=== PATIENT | male | born 1980 | race Caucasian/White ===

== ENCOUNTER 2020-12-12 14:08 | Emergency (ER) | payer OTHER, MEDICAID, SELFPAY ==
[2020-12-12 14:16] VITALS: BP 163/103; PULSE 102; RESP 32; TEMP 37.1; O2SAT 96; BMI 22.0
--- NOTE | 2020-12-12 14:29 | DI.RAD.S_ITS ---
PROCEDURE: XR RIBS RT MIN 3V W CXR 1V INDICATIONS: right sided chest pain, tender over right ribs TECHNIQUE: 2 views of the right ribs were acquired, along with a single view chest. COMPARISON: None. FINDINGS: Surgical changes and devices: None. Bones and chest wall: No fractures or dislocations. No suspicious bony lesions. Overlying soft tissues appear unremarkable. Lungs and pleura: No pleural effusions or pneumothorax. Lungs appear clear. Mediastinum: Mediastinal contours appear normal. Heart size is normal. IMPRESSION: No obvious displaced right rib fracture is seen. No acute cardiopulmonary pathology. Dictated by: Wang Stanton M.D. on 12/12/2020 at 15:51 Approved by: Wang Stanton M.D. on 12/12/2020 at 15:52
== END 2020-12-12 17:19 | disposition left against medical advice (07) ==
PROVIDERS: Emergency Provider Emergency Medicine
DX: R07.9 Chest pain, unspecified (principal)
CPT/HCPCS: 71101; 93005; 99283

== ENCOUNTER 2020-12-14 10:25 | Emergency (ER) | payer OTHER, MEDICAID, SELFPAY ==
[2020-12-14] VITALS (15 sets, daily range): BP systolic 115–162; BP diastolic 55–93; PULSE 65–113; RESP 18–30; TEMP 37.2; O2SAT 94–100; BMI 22.0
--- NOTE | 2020-12-14 10:34 | DI.RAD.S_ITS ---
PROCEDURE: XR CHEST 1V INDICATIONS: suspected sepsis TECHNIQUE: One view of the chest was acquired. COMPARISON: [facility], CR, XR RIBS RT MIN 3V W CXR 1V, 12/12/2020, 14:29. FINDINGS: Surgical changes and devices: None. Lungs and pleura: Bilateral patchy airspace opacity. No pleural effusions or pneumothorax. Mediastinum: Mediastinal contours are within normal limits. Heart size is normal. Bones and chest wall: No suspicious bony lesions. Overlying soft tissues appear unremarkable. IMPRESSION: Bilateral patchy airspace opacity. Findings suspicious for infectious/inflammatory etiology. COVID-19 could have this appearance. Dictated by: Asher Alvarado M.D. on 12/14/2020 at 11:01 Approved by: Asher Alvarado M.D. on 12/14/2020 at 11:03
[2020-12-14] MEDS: SODIUM CHLORIDE 0.9% 1,000 ML 1000 ML IV (10:52)
[2020-12-14 11:22] LABS: Add Manual Diff / Slide Review NO; Basophils Absolute Auto 0 /uL (0-100); Basophils Percent Auto 0.1 % (0-2); Eosinophils Absolute Auto 0 /uL (0-450); Eosinophils Percent Auto 0.2 % (2-4); Hematocrit 37.4 % (41-53); Hemoglobin 12.5 g/dL (13.5-17.5); Lymphocytes Absolute Auto 400 /uL (1100-4500); Lymphocytes Percent Auto 1.9 % (25-40); Mean Corpuscular HGB Conc 33.4 % (30-36); Mean Corpuscular Volume 83.9 fL (80-100); Monocytes Absolute Auto 1500 /uL (0-900); Monocytes Percent Auto 6.9 % (3-14); Neutrophils Absolute Auto 19500 /uL (1500-7000); Neutrophils Percent Auto 90.9 % (50-75); Platelet Count 248 X10^3/uL (150-400); Red Blood Cell Count 4.46 X10^6/uL (4.5-5.9); Red Cell Distribution Width 13.5 % (11.6-14.8); White Blood Cell Count 21.4 X10^3/uL (4.5-11.0)
[2020-12-14 11:23] LABS: Alanine Aminotransferase 38 IU/L (<50); Albumin 3.6 g/dL (3.5-5.0); Alkaline Phosphatase 121 U/L (38-126); Aspartate Aminotransferase 36 IU/L (17-59); BUN Creatinine Ratio 26.3 (6-22); Bilirubin Total 0.5 mg/dL (0.2-1.3); Blood Urea Nitrogen 20 mg/dL (9-20); Calcium 9.2 mg/dL (8.4-10.2); Carbon Dioxide 23 mmol/L (22-32); Chloride 98 mmol/L (98-107); Estimated Glomerular Filt Rate > 60.0 mL/min (>60); Globulin 3.5 g/dL (1.7-4.1); Glucose 173 mg/dL (70-100); HEMOLYSIS < 15 (0-50); Lactate (Lactic Acid) 2.9 mmol/L (0.7-2.1); Lipase 34 U/L (23-300); Potassium 4.1 mmol/L (3.4-5.1); Sodium 132 mmol/L (137-145); Total Protein 7.1 g/dL (6.3-8.2)
[2020-12-14 11:39] LABS: Procalcitonin 1.45 ng/mL (<0.5)
[2020-12-14] MEDS: PIPERACILLIN/TAZO 4.5 GM in SODIUM CHLORIDE 0.9% 100 ML 200 ML IV (11:41)
[2020-12-14] MEDS: KETOROLAC 30 MG/ML VIAL IV (11:41)
[2020-12-14 12:04] LABS: D Dimer 2285 ng/mL (<230)
[2020-12-14 12:06] LABS: COVID19 - ADMIT (NP swab/PCR) Negative (Negative)
--- NOTE | 2020-12-14 12:07 | ED.SKABFB ---
HPI - Skin/Abscess/Foreign Bdy General Chief complaint: Skin/Abscess/Foreign Body Stated complaint: shortness of breath/sore on head x5 days Time Seen by Provider: 12/14/20 11:19 Source: patient Mode of arrival: Ambulatory Limitations: no limitations History of Present Illness HPI narrative: Patient is a 40-year-old male who presents from clinic concern for cellulitis of his scalp. He noticed a wound on the right side of his scalp increasing pain he also says that he is having difficulty breathing says it hurts to breathe. He certainly looks uncomfortable. He has had some fevers and sweats as well. 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 he says he has not injected for couple of months and typically smokes it. Related Data Previous Rx's Medication Instructions Recorded naproxen 500 mg tablet 500 mg PO BID #20 tab 12/13/20 tizanidine 4 mg tablet 4 mg PO TID PRN #30 tab 12/13/20 Allergies Allergy/AdvReac Type Severity Reaction Status Date / Time No Known Drug Allergies Allergy Verified 12/14/20 10:31 Review of Systems Review of Systems ROS Unobtainable: All systems reviewed & are unremarkable except as noted in HPI and below Constitutional Constitutional: Reports weakness ENT Ears, Nose, Mouth, and Throat: Denies dizziness and Denies sore throat Cardiovascular Cardiovascular: Reports chest pain, Denies syncope and Reports dyspnea Respiratory Respiratory: Reports dyspnea Genitourinary Genitourinary: Denies urinary frequency and Denies urinary hesitancy Musculoskeletal Musculoskeletal: Denies back pain Neurologic Neurologic: Denies dizziness, Denies syncope and Reports weakness Patient History Social History Smoking Status: Current every day smoker Smoking Status: Current every day smoker alcohol intake frequency: holidays/special occasions only Substance Use Type: marijuana Exam Initial Vital Signs Initial Vital Signs: Vital Signs Temperature 98.9 F 12/14/20 10:31 Pulse Rate 113 H 12/14/20 10:31 Respiratory Rate 30 H 12/14/20 10:31 Blood Pressure 119/55 L 12/14/20 10:31 Pulse Oximetry 98 12/14/20 10:31 GENERAL: Alert thin young 40-year-old male appears uncomfortable and in mild to moderate distress HEENT: Head atraumatic,EOMI, pupils reactive, face symmetric, moist mucous membranes CARDIOVASCULAR: Tachycardic regular no rubs or gallops no murmur RESPIRATORY: Tachypneic clear bilaterally ABDOMEN: Soft, nontender. Normoactive bowel sounds all 4 quadrants. No guarding or rebound. EXTREMITIES: Normal range of motion, no clubbing or edema. Neurovascularly intact NEUROLOGICAL: Alert and oriented x4.Normal gait and speech. SKIN: Wound noted on right side of head 2 cm x 2 cm a difficult to tell if there is surrounding erythema certainly no fluctuation or abscess. Course Orders Ordered: ED Orders 12/14/20 11:33 Blood Culture Stat D Dimer Stat 12/14/20 12:38 CT angio chest PE protocol Stat 12/14/20 12:44 Urinalysis and Microscopic Stat Urine Culture Stat Urine Drug Screen, Rapid Stat 12/14/20 13:09 EC echo doppler complete Stat Discontinued Medications Hydromorphone HCl (Hydromorphone 0.5 Mg Inj) 0.5 mg IV NOW ONE Stop: 12/14/20 13:11 Last Admin: 12/14/20 13:15 Dose: 0.5 mg Documented by: CRISTEL Hydromorphone HCl (Hydromorphone 1 Mg Inj) 1 mg IV NOW ONE Stop: 12/14/20 16:48 Last Admin: 12/14/20 17:01 Dose: 1 mg Documented by: CRISTEL Hydromorphone HCl (Hydromorphone 1 Mg Inj) 1 mg IV NOW ONE Stop: 12/14/20 18:14 Last Admin: 12/14/20 18:20 Dose: 1 mg Documented by: TAMIE Sodium Chloride (Normal Saline 0.9%) 1,000 mls @ 1,000 mls/hr IV BOLUS ONE Stop: 12/14/20 11:33 Last Infusion: 12/14/20 12:07 Dose: 0 mls/hr Documented by: Admin: 12/14/20 10:52 Dose: 1,000 mls/hr Documented by: BRANNON Piperacillin Sod/Tazobactam (Sod 4.5 gm/ Sodium Chloride) 100 mls @ 200 mls/hr IV NOW ONE Stop: 12/14/20 11:30 Last Infusion: 12/14/20 12:14 Dose: 0 mls/hr Documented by: Admin: 12/14/20 11:41 Dose: 200 mls/hr Documented by: CRISTEL Vancomycin HCl (Vancomycin) 1,000 mg in 200 mls @ 200 mls/hr IV NOW ONE Stop: 12/14/20 14:07 Last Infusion: 12/14/20 14:28 Dose: 0 mls/hr Documented by: Admin: 12/14/20 13:23 Dose: 200 mls/hr Documented by: CRISTEL Sodium Chloride (Normal Saline 0.9%) 1,000 mls @ 150 mls/hr IV CONT DEANNA Last Admin: 12/14/20 13:41 Dose: 150 mls/hr Documented by: CRISTEL Ketorolac Tromethamine (Ketorolac 30 Mg/Ml Vial) 30 mg IV NOW ONE Stop: 12/14/20 11:30 Last Admin: 12/14/20 11:41 Dose: 30 mg Documented by: CRISTEL Lorazepam (Lorazepam 2 Mg/Ml Inj) 1 mg IV NOW ONE Stop: 12/14/20 15:48 Last Admin: 12/14/20 15:51 Dose: 1 mg Documented by: CRISTEL Lorazepam (Lorazepam 2 Mg/Ml Inj) 1 mg IV NOW ONE Stop: 12/14/20 18:14 Last Admin: 12/14/20 18:19 Dose: 1 mg Documented by: TAMIE Vital Signs Vital signs: Vital Signs - 8 hr 12/14/20 12:59 12/14/20 13:05 12/14/20 14:05 Pulse Rate 65 98 H 95 H Respiratory Rate 18 18 Blood Pressure 116/65 116/65 115/65 Pulse Oximetry 94 99 98 12/14/20 15:06 12/14/20 15:12 12/14/20 15:43 Pulse Rate 97 H 110 H 100 H Respiratory Rate 18 18 20 Blood Pressure 138/82 134/75 Pulse Oximetry 98 98 100 12/14/20 15:44 12/14/20 16:00 12/14/20 16:30 Pulse Rate 99 H 103 H 107 H Respiratory Rate 20 20 Blood Pressure 134/75 147/84 H 156/84 H Pulse Oximetry 98 100 100 12/14/20 17:00 12/14/20 17:30 12/14/20 18:00 Pulse Rate 110 H 102 H 113 H Respiratory Rate Blood Pressure 162/93 H 157/93 H 150/92 H Pulse Oximetry 99 98 98 MDM - Skin/Abscess/Foreign Bdy Lab Data Attestation: I reviewed the patient's lab results. Result diagrams: 12/14/20 10:50 12/14/20 10:50 Labs: Lab Results 12/14/20 12/14/20 12/14/20 Range/Units 10:50 10:50 10:50 WBC 21.4 H (4.5-11.0) X10^3/uL RBC 4.46 L (4.5-5.9) X10^6/uL Hgb 12.5 L (13.5-17.5) g/dL Hct 37.4 L (41-53) % MCV 83.9 (80-100) fL MCH 28.0 (26-34) PG MCHC 33.4 (30-36) % RDW 13.5 (11.6-14.8) % Plt Count 248 (150-400) X10^3/uL Neut % (Auto) 90.9 H (50-75) % Lymph % (Auto) 1.9 L (25-40) % Campbell % (Auto) 6.9 (3-14) % Eos % (Auto) 0.2 L (2-4) % Baso % (Auto) 0.1 (0-2) % Neut # (Auto) 35703 H (9913-1581) /uL Lymph # (Auto) 400 L (1435-2033) /uL Campbell # (Auto) 1500 H (0-900) /uL Eos # (Auto) 0 (0-450) /uL Baso # (Auto) 0 (0-100) /uL D-Dimer (<230) ng/mL Sodium 132 L (137-145) mmol/L Potassium 4.1 (3.4-5.1) mmol/L Chloride 98 (98-107) mmol/L Carbon Dioxide 23 (22-32) mmol/L BUN 20 (9-20) mg/dL Creatinine 0.76 (0.66-1.25) mg/dL Estimated GFR > 60.0 (>60) mL/min BUN/Creatinine Ratio 26.3 H (6-22) Glucose 173 H (70-100) mg/dL Lactate 2.9 H (0.7-2.1) mmol/L Calcium 9.2 (8.4-10.2) mg/dL Total Bilirubin 0.5 (0.2-1.3) mg/dL AST 36 (17-59) IU/L ALT 38 (<50) IU/L Alkaline Phosphatase 121 (38-126) U/L Total Protein 7.1 (6.3-8.2) g/dL Albumin 3.6 (3.5-5.0) g/dL Globulin 3.5 (1.7-4.1) g/dL Albumin/Globulin Ratio 1.0 (1.0-2.8) Lipase 34 (23-300) U/L Procalcitonin 1.45 H (<0.5) ng/mL Urine Color Urine Appearance Urine pH (4.5-8.0) Ur Specific [place] (1.000-1.035) Urine Protein (Negative) Urine Glucose (UA) (Negative) g/dL Urine Ketones (NEGATIVE) Urine Occult Blood (Negative) Urine Nitrate (Negative) Urine Bilirubin (NEGATIVE) Urine Urobilinogen (0.2) E.U./dL Ur Leukocyte Esterase (NEGATIVE) Urine RBC (0-5/HPF) Urine WBC (0-5/HPF) Ur Squamous Epith Cells (0-5/HPF) Amorphous Sediment Urine Bacteria (None) Urine Mucus (Negative) Ur Culture Indicated? U Opiates 300ng/mL cut (Negative) Ur Oxycodone Screen (Negative) Urine Methadone Screen (Negative) Ur Barbiturates Screen (Negative) U Tricyclic Antidepress (Negative) Ur Phencyclidine Scrn (Negative) Ur Amphetamines Screen (Negative) U Methamphetamines Scrn (Negative) Ur MDMA Scrn (Ecstasy) (Negative) U Benzodiazepines Scrn (Negative) Urine Cocaine Screen (Negative) U Marijuana (THC) Screen (Negative) SARS-CoV-2 (PCR) (Negative) 12/14/20 12/14/20 12/14/20 Range/Units 10:50 11:33 12:44 WBC (4.5-11.0) X10^3/uL RBC (4.5-5.9) X10^6/uL Hgb (13.5-17.5) g/dL Hct (41-53) % MCV (80-100) fL MCH (26-34) PG MCHC (30-36) % RDW (11.6-14.8) % Plt Count (150-400) X10^3/uL Neut % (Auto) (50-75) % Lymph % (Auto) (25-40) % Campbell % (Auto) (3-14) % Eos % (Auto) (2-4) % Baso % (Auto) (0-2) % Neut # (Auto) (8138-4738) /uL Lymph # (Auto) (7889-5542) /uL Campbell # (Auto) (0-900) /uL Eos # (Auto) (0-450) /uL Baso # (Auto) (0-100) /uL D-Dimer 2285 H (<230) ng/mL Sodium (137-145) mmol/L Potassium (3.4-5.1) mmol/L Chloride (98-107) mmol/L Carbon Dioxide (22-32) mmol/L BUN (9-20) mg/dL Creatinine (0.66-1.25) mg/dL Estimated GFR (>60) mL/min BUN/Creatinine Ratio (6-22) Glucose (70-100) mg/dL Lactate (0.7-2.1) mmol/L Calcium (8.4-10.2) mg/dL Total Bilirubin (0.2-1.3) mg/dL AST (17-59) IU/L ALT (<50) IU/L Alkaline Phosphatase (38-126) U/L Total Protein (6.3-8.2) g/dL Albumin (3.5-5.0) g/dL Globulin (1.7-4.1) g/dL Albumin/Globulin Ratio (1.0-2.8) Lipase (23-300) U/L Procalcitonin (<0.5) ng/mL Urine Color Yellow Urine Appearance Slightly cloudy Urine pH 6.0 (4.5-8.0) Ur Specific [place] <=1.005 (1.000-1.035) Urine Protein 1+ H (Negative) Urine Glucose (UA) Trace H (Negative) g/dL Urine Ketones Negative (NEGATIVE) Urine Occult Blood 1+ H (Negative) Urine Nitrate Negative (Negative) Urine Bilirubin Negative (NEGATIVE) Urine Urobilinogen 0.2 (0.2) E.U./dL Ur Leukocyte Esterase Negative (NEGATIVE) Urine RBC 0-1/hpf (0-5/HPF) Urine WBC 5-10/hpf H (0-5/HPF) Ur Squamous Epith Cells 0-1 /hpf (0-5/HPF) Amorphous Sediment 1+ Urine Bacteria Occasional (0-1) (None) Urine Mucus 1+ H (Negative) Ur Culture Indicated? Specimen cultured U Opiates 300ng/mL cut (Negative) Ur Oxycodone Screen (Negative) Urine Methadone Screen (Negative) Ur Barbiturates Screen (Negative) U Tricyclic Antidepress (Negative) Ur Phencyclidine Scrn (Negative) Ur Amphetamines Screen (Negative) U Methamphetamines Scrn (Negative) Ur MDMA Scrn (Ecstasy) (Negative) U Benzodiazepines Scrn (Negative) Urine Cocaine Screen (Negative) U Marijuana (THC) Screen (Negative) SARS-CoV-2 (PCR) Negative (Negative) 12/14/20 12/14/20 Range/Units 12:44 13:29 WBC (4.5-11.0) X10^3/uL RBC (4.5-5.9) X10^6/uL Hgb (13.5-17.5) g/dL Hct (41-53) % MCV (80-100) fL MCH (26-34) PG MCHC (30-36) % RDW (11.6-14.8) % Plt Count (150-400) X10^3/uL Neut % (Auto) (50-75) % Lymph % (Auto) (25-40) % Campbell % (Auto) (3-14) % Eos % (Auto) (2-4) % Baso % (Auto) (0-2) % Neut # (Auto) (7500-7644) /uL Lymph # (Auto) (6410-3228) /uL Campbell # (Auto) (0-900) /uL Eos # (Auto) (0-450) /uL Baso # (Auto) (0-100) /uL D-Dimer (<230) ng/mL Sodium (137-145) mmol/L Potassium (3.4-5.1) mmol/L Chloride (98-107) mmol/L Carbon Dioxide (22-32) mmol/L BUN (9-20) mg/dL Creatinine (0.66-1.25) mg/dL Estimated GFR (>60) mL/min BUN/Creatinine Ratio (6-22) Glucose (70-100) mg/dL Lactate 1.8 (0.7-2.1) mmol/L Calcium (8.4-10.2) mg/dL Total Bilirubin (0.2-1.3) mg/dL AST (17-59) IU/L ALT (<50) IU/L Alkaline Phosphatase (38-126) U/L Total Protein (6.3-8.2) g/dL Albumin (3.5-5.0) g/dL Globulin (1.7-4.1) g/dL Albumin/Globulin Ratio (1.0-2.8) Lipase (23-300) U/L Procalcitonin (<0.5) ng/mL Urine Color Urine Appearance Urine pH (4.5-8.0) Ur Specific [place] (1.000-1.035) Urine Protein (Negative) Urine Glucose (UA) (Negative) g/dL Urine Ketones (NEGATIVE) Urine Occult Blood (Negative) Urine Nitrate (Negative) Urine Bilirubin (NEGATIVE) Urine Urobilinogen (0.2) E.U./dL Ur Leukocyte Esterase (NEGATIVE) Urine RBC (0-5/HPF) Urine WBC (0-5/HPF) Ur Squamous Epith Cells (0-5/HPF) Amorphous Sediment Urine Bacteria (None) Urine Mucus (Negative) Ur Culture Indicated? U Opiates 300ng/mL cut Positive H (Negative) Ur Oxycodone Screen Negative (Negative) Urine Methadone Screen Negative (Negative) Ur Barbiturates Screen Negative (Negative) U Tricyclic Antidepress Negative (Negative) Ur Phencyclidine Scrn Negative (Negative) Ur Amphetamines Screen Positive H (Negative) U Methamphetamines Scrn Positive H (Negative) Ur MDMA Scrn (Ecstasy) Negative (Negative) U Benzodiazepines Scrn Negative (Negative) Urine Cocaine Screen Negative (Negative) U Marijuana (THC) Screen Positive H (Negative) SARS-CoV-2 (PCR) (Negative) Urine Dip Bedside Urine Glucose Negative Bedside Urine Bilirubin - Negative Bedside Urine Ketone - Negative Urine Specific [place] 1.020 Bedside Urine Occult Blood +/- Bedside Urine pH 6.0 Bedside Urine Protein + 30 Bedside Urine Urobilinogen - Negative Bedside Urine Nitrite - Negative Bedside Urine Leukocytes - Negative Esterase Imaging Data CT scan - chest: Radiologist's Impression: PROCEDURE: CT ANGIO CHEST PE PROTOCOL INDICATIONS: ++dimer and sob TECHNIQUE: After the administration of intravenous contrast, 2 mm thick sections acquired from the pulmonary apices to the posterior costophrenic angles. 3-dimensional maximum intensity projection (MIP) coronal and sagittal reformats were then acquired through the thorax. For radiation dose reduction, the following was used: automated exposure control, adjustment of mA and/or kV according to patient size. COMPARISON: None. FINDINGS: Image quality: Excellent. Pulmonary arteries: Pulmonary arteries are normal in size, and demonstrate no intraluminal filling defects to suggest central pulmonary embolism. Lungs and pleura: Numerous bilateral ill-defined relatively peripheral cavitary pulmonary nodules, as well as ill-defined non cavitary pulmonary nodules are highly suspicious for septic pulmonary emboli. Small right pleural effusion with minimal right basilar atelectasis. Central and peripheral airways are patent. Mediastinum: Heart size is normal, with minimal pericardial effusion. Shotty mediastinal or hilar adenopathy. Thoracic aorta is normal in caliber and enhancement. Esophagus is normal in caliber, without hiatal hernia. Bones and chest wall: No suspicious bony lesions. Ribs and thoracic spine appear intact throughout. Thyroid gland is somewhat lobulated without focal nodule identified. No axillary or supraclavicular adenopathy. Abdomen: Visualized upper abdominal solid organs appear normal in the early arterial phase of enhancement. IMPRESSION: 1. Findings are highly suspicious for numerous bilateral septic pulmonary emboli. Comment: Recommend echocardiography to check for vegetations. Dictated by: Arturo Marsh M.D. on 12/14/2020 at 12:35 ECHO: Radiologist's Impression: [facility] +---------+ Hospital +---------+ : : [address] : : [place] : : : : [id number] : : : : Phone: [phone] Echocardiogram Report + + :Name: KEVIN DAVISON Study Date: 12/14/2020 Height: 68 in : :Hospital ReadingLocation: Weight: 145 lb : : Gender: Male BSA: 1.8 m2 : :: 1980 Age: 40 yrs BP: 147/84 mmHg: :Reason For Study: SEPTIC EMBOLI, POSSIBLE VEGETATIONS : :Ordering Physician: JEREMY, : :IDA Performed By: Lola Cerda : :Referring: IDA LUNA : + + Interpretation Summary The patient was in sinus tachycardia with heart rates between 100-110 bpm during the exam. The left ventricle is normal in size and wall thickness. The ejection fraction is estimated to be 50-55%. The right ventricle is normal in size and function. There is mild to moderate mitral regurgitation. There is mild tricuspid regurgitation. Pulmonary artery pressures cannot be estimated because of the lack of a measurable TR jet velocity but the IVC suggests a CVP of around 15 mmHg. No obvious valvular vegetation seen. Procedure: A two-dimensional transthoracic echocardiogram with color flow and Doppler was performed. The study quality was technically adequate. There is no prior echocardiogram noted for this patient. Patient was scanned in a supine and seated position due to intense pains in back. The patient was in sinus tachycardia with heart rates between 100-110 bpm during the exam. Left Ventricle: The left ventricle is normal in size and wall thickness. There is no thrombus. Trabeculae near apex are visualized. No thrombus is observed. The ejection fraction is estimated to be 50-55%. Septal motion is consistent with conduction abnormality. MV E/A: 1.1 Med Peak E' Graham: 12.5 cm/sec E/E' med: 6.3. Right Ventricle: The right ventricle is normal in size and function. Atria: Both atria are normal in size. There is no Doppler evidence for an interatrial shunt. Mitral Valve: The mitral valve is normal in structure and function. There is mild to moderate mitral regurgitation. Aortic Valve: The aortic valve opens well. The aortic valve is trileaflet. There is no aortic valve stenosis. No aortic regurgitation is present. Tricuspid Valve: The tricuspid valve is normal in structure and function. There is mild tricuspid regurgitation. Pulmonary artery pressures cannot be estimated because of the lack of a measurable TR jet velocity but the IVC suggests a CVP of around 15 mmHg. Pulmonic Valve: The pulmonic valve leaflets are thin and pliable; valve motion is normal. There is no pulmonic valvular regurgitation. Great Vessels: The aortic root is normal size. The ascending aorta could not be visualized. The IVC is dilated (diameter is greater than 2.1 cm) and it collapses less than 50% with a sniff. This suggests a high right atrial pressure of 15 mm Hg. Pericardium/ Pleura There is no pericardial effusion. There is no pleural effusion. MMode/2D Measurements & Calculations LVIDd: 4.4 cm LVOT diam: 2.3 cm LVIDs: 3.2 cm Ao root diam: 3.2 cm FS: 26.1 % Ao Arch Diam (Prox Trans): 2.6 cm IVSd: 0.95 cm LVPWd: 0.88 cm LV villasenor. diameter/BSA (cm/m^2): 2.5 LV sys. diameter/BSA (cm/m^2): 1.8 LA A2 area: 14.5 cm2 RA long axis: 4.4 cm LA A4 area: 15.0 cm2 RA area: 14.5 cm2 LA length (vol): 4.8 cm RA vol: 40.7 ml LA vol: 38.3 ml RA : 22.8 ml/m2 LA vol index: 21.5 ml/m2 IVC diam: 2.4 cm RVD1 (basal): 4.0 cm TAPSE: 2.1 cm Doppler Measurements & Calculations Ao V2 max: 111.4 cm/sec LVOT Max Graham: 106.8 cm/sec Ao V2 mean: 79.2 cm/sec LV V1 max P.6 mmHg Ao max P.0 mmHg LV V1 VTI: 16.3 cm Ao mean P.8 mmHg KELVIN(I,D): 4.0 cm2 Ao V2 VTI: 16.7 cm KELVIN(V,D): 3.9 cm2 sev ratio: 0.97 KELVIN indexed to BSA (cm^2/m^2): 2.2 MV E max graham: 78.5 cm/sec PA V2 max: 104.9 cm/sec MV A max graham: 70.4 cm/sec PA V2 mean: 73.1 cm/sec MV E/A: 1.1 PA mean P.4 mmHg Med Peak E' Graham: 12.5 cm/sec PA pr(Accel): 36.2 mmHg E/E' med: 6.3 Lat Peak E' Graham: 13.5 cm/sec E/E' lat: 5.8 E/e' average: 6.1 MV dec time: 0.17 sec SV(LVOT): 66.5 ml Reading Physician:04:57 PM ECG Data Interpretation: Sinus tachycardia rate 109 AL interval 130 QRS [address] changes or T-wave and inversions Q-waves noted in lead 3 S wave in lead 1 possible T-wave inversions in lead 3 no ischemic changes noted MDM Narrative Medical decision making narrative: Patient appears uncomfortable tachypneic tachycardic is. Wound on his head is not significant certainly no obvious abscess not convinced that there cellulitis around it either. Leukocytosis returns at 21,000 with elevated lactate at 2.9. Patient certainly septic IV fluids started he is not hypoxic he is given empiric antibiotics after blood cultures have been drawn. D-dimer was ordered because of patient's tachycardia and tachypnea he returned elevated greater than 2000. CT of his chest does show multiple bilateral septic emboli. He is started on vancomycin. Significant bed shortage in the [facility] thought to be boarding in the emergency department for number hours we days echocardiogram is ordered stat to help determine placement. Fortunately echocardiogram does not show any vegetation on his valves. Patient's pain continues to be difficult to control. He has been given multiple doses of Dilaudid an Ativan some of this I think is from tolerance. [id number] Dr. Franks, hospitalist at [facility] been updated patient's symptoms test results and is happy to accept. Critical Care Time Critical Care Time Critical Care Time: Yes Total Critical Care Time: 30 Attestation: The high probability of a clinically significant, sudden or life threatening deterioration of the cardiovascular system(s) required my full and direct attention, intervention and personal management. The aggregate critical care time was 30 minutes. This time is in addition to time spent performing reported procedures but includes the following: x Data Review and interpretation x Patient assessment and monitoring of vital signs x Documentation x Medication orders and management Discharge Plan Departure Patient Disposition: [facility] Clinical Impression: Acute septic pulmonary embolism Qualifiers: Acute cor pulmonale presence: without acute cor pulmonale Qualified Code(s): I26.90 - Septic pulmonary embolism without acute cor pulmonale Prescriptions: No Action tizanidine 4 mg tablet 4 mg PO TID PRN (Reason: muscle spasticity) Qty: 30 RF: 0 naproxen 500 mg tablet 500 mg PO BID Qty: 20 RF: 3 Referrals: Tamika Valenzuela PA-C [Primary Care Provider] -
--- NOTE | 2020-12-14 12:38 | DI.CT.S_ITS ---
PROCEDURE: CT ANGIO CHEST PE PROTOCOL INDICATIONS: ++dimer and sob TECHNIQUE: After the administration of intravenous contrast, 2 mm thick sections acquired from the pulmonary apices to the posterior costophrenic angles. 3-dimensional maximum intensity projection (MIP) coronal and sagittal reformats were then acquired through the thorax. For radiation dose reduction, the following was used: automated exposure control, adjustment of mA and/or kV according to patient size. COMPARISON: None. FINDINGS: Image quality: Excellent. Pulmonary arteries: Pulmonary arteries are normal in size, and demonstrate no intraluminal filling defects to suggest central pulmonary embolism. Lungs and pleura: Numerous bilateral ill-defined relatively peripheral cavitary pulmonary nodules, as well as ill-defined non cavitary pulmonary nodules are highly suspicious for septic pulmonary emboli. Small right pleural effusion with minimal right basilar atelectasis. Central and peripheral airways are patent. Mediastinum: Heart size is normal, with minimal pericardial effusion. Shotty mediastinal or hilar adenopathy. Thoracic aorta is normal in caliber and enhancement. Esophagus is normal in caliber, without hiatal hernia. Bones and chest wall: No suspicious bony lesions. Ribs and thoracic spine appear intact throughout. Thyroid gland is somewhat lobulated without focal nodule identified. No axillary or supraclavicular adenopathy. Abdomen: Visualized upper abdominal solid organs appear normal in the early arterial phase of enhancement. IMPRESSION: 1. Findings are highly suspicious for numerous bilateral septic pulmonary emboli. Comment: Recommend echocardiography to check for vegetations. Dictated by: Arturo Marsh M.D. on 12/14/2020 at 12:35 Approved by: Arturo Marsh M.D. on 12/14/2020 at 12:41
[2020-12-14 13:00] LABS: Reflexed Lactate in 2 Hours Y
[2020-12-14 13:06] LABS: Bilirubin Urine UA NEGATIVE (NEGATIVE); Color Urine UA YELLOW; Glucose Urine UA TRACE g/dL (Negative); Ketones Urine UA NEGATIVE (NEGATIVE); Leukocyte Esterase Urine UA NEGATIVE (NEGATIVE); Nitrite Urine UA NEGATIVE (Negative); Occult Blood Urine UA 1+ (Negative); Protein Urine UA 1+ (Negative); Specific Gravity Urine UA <=1.005 (1.000-1.035); Urobilinogen Urine UA 0.2 E.U./dL (0.2)
--- NOTE | 2020-12-14 13:09 | DI.ECHO.S_ITS ---
[facility]---------+ [facility] +---------+ : : [address] : [place] : : : : [id number] : : : : Phone: [phone]+ Echocardiogram Report + + :Name: KEVIN DAVISON Study Date: 12/14/2020 Height: 68 in : :[facility] ReadingLocation: Weight: 145 lb : : Gender: Male BSA: 1.8 m2 : :: 1980 Age: 40 yrs BP: 147/84 mmHg: :Reason For Study: SEPTIC EMBOLI, POSSIBLE VEGETATIONS : :Ordering Physician: JEREMY, : :IDA Performed By: Lola Cerda : :Referring: IDA LUNA : + + Interpretation Summary The patient was in sinus tachycardia with heart rates between 100-110 bpm during the exam. The left ventricle is normal in size and wall thickness. The ejection fraction is estimated to be 50-55%. The right ventricle is normal in size and function. There is mild to moderate mitral regurgitation. There is mild tricuspid regurgitation. Pulmonary artery pressures cannot be estimated because of the lack of a measurable TR jet velocity but the IVC suggests a CVP of around 15 mmHg. No obvious valvular vegetation seen. Procedure: A two-dimensional transthoracic echocardiogram with color flow and Doppler was performed. The study quality was technically adequate. There is no prior echocardiogram noted for this patient. Patient was scanned in a supine and seated position due to intense pains in back. The patient was in sinus tachycardia with heart rates between 100-110 bpm during the exam. Left Ventricle: The left ventricle is normal in size and wall thickness. There is no thrombus. Trabeculae near apex are visualized. No thrombus is observed. The ejection fraction is estimated to be 50-55%. Septal motion is consistent with conduction abnormality. MV E/A: 1.1 Med Peak E' Graham: 12.5 cm/sec E/E' med: 6.3. Right Ventricle: The right ventricle is normal in size and function. Atria: Both atria are normal in size. There is no Doppler evidence for an interatrial shunt. Mitral Valve: The mitral valve is normal in structure and function. There is mild to moderate mitral regurgitation. Aortic Valve: The aortic valve opens well. The aortic valve is trileaflet. There is no aortic valve stenosis. No aortic regurgitation is present. Tricuspid Valve: The tricuspid valve is normal in structure and function. There is mild tricuspid regurgitation. Pulmonary artery pressures cannot be estimated because of the lack of a measurable TR jet velocity but the IVC suggests a CVP of around 15 mmHg. Pulmonic Valve: The pulmonic valve leaflets are thin and pliable; valve motion is normal. There is no pulmonic valvular regurgitation. Great Vessels: The aortic root is normal size. The ascending aorta could not be visualized. The IVC is dilated (diameter is greater than 2.1 cm) and it collapses less than 50% with a sniff. This suggests a high right atrial pressure of 15 mm Hg. Pericardium/ Pleura There is no pericardial effusion. There is no pleural effusion. MMode/2D Measurements & Calculations LVIDd: 4.4 cm LVOT diam: 2.3 cm LVIDs: 3.2 cm Ao root diam: 3.2 cm FS: 26.1 % Ao Arch Diam (Prox Trans): 2.6 cm IVSd: 0.95 cm LVPWd: 0.88 cm LV villasenor. diameter/BSA (cm/m^2): 2.5 LV sys. diameter/BSA (cm/m^2): 1.8 LA A2 area: 14.5 cm2 RA long axis: 4.4 cm LA A4 area: 15.0 cm2 RA area: 14.5 cm2 LA length (vol): 4.8 cm RA vol: 40.7 ml LA vol: 38.3 ml RA : 22.8 ml/m2 LA vol index: 21.5 ml/m2 IVC diam: 2.4 cm RVD1 (basal): 4.0 cm TAPSE: 2.1 cm Doppler Measurements & Calculations Ao V2 max: 111.4 cm/sec LVOT Max Graham: 106.8 cm/sec Ao V2 mean: 79.2 cm/sec LV V1 max P.6 mmHg Ao max P.0 mmHg LV V1 VTI: 16.3 cm Ao mean P.8 mmHg KELVIN(I,D): 4.0 cm2 Ao V2 VTI: 16.7 cm KELVIN(V,D): 3.9 cm2 sev ratio: 0.97 KELVIN indexed to BSA (cm^2/m^2): 2.2 MV E max graham: 78.5 cm/sec PA V2 max: 104.9 cm/sec MV A max graham: 70.4 cm/sec PA V2 mean: 73.1 cm/sec MV E/A: 1.1 PA mean P.4 mmHg Med Peak E' Graham: 12.5 cm/sec PA pr(Accel): 36.2 mmHg E/E' med: 6.3 Lat Peak E' Graham: 13.5 cm/sec E/E' lat: 5.8 E/e' average: 6.1 MV dec time: 0.17 sec SV(LVOT): 66.5 ml Reading Physician:04:[id number] PM
[2020-12-14] MEDS: HYDROMORPHONE 0.5 MG INJ IV (13:15)
[2020-12-14] MEDS: VANCOMYCIN 1,000 MG/200 ML PIGGYBACK 200 MG IV (13:23)
[2020-12-14 13:24] LABS: Appearance Urine UA Slightly Cloudy; RBC Urine 0-1/HPF (0-5/HPF); WBC Urine 5-10/HPF (0-5/HPF)
[2020-12-14 13:25] LABS: Amorphous Sediment Urine 1+; Bacteria Urine Occasional (0-1); Culture Indicated Urine Specimen Cultured; Mucus Urine 1+ (Negative); Squamous Epithelial Cell Urine 0-1 /HPF (0-5/HPF)
[2020-12-14 13:41] LABS: Ur Creatinine Normal (Normal); Ur Specific Gravity Normal (Normal); Urine Tetrahydrocannabinol Positive (Negative); Urine pH Normal (Normal)
[2020-12-14] MEDS: SODIUM CHLORIDE 0.9% 1,000 ML 150 ML IV (13:41)
[2020-12-14 13:42] LABS: UR Morphine/Opiate cutoff 300 Positive (Negative); Urine Amphetamines Positive (Negative); Urine Barbiturates Negative (Negative); Urine Benzodiazepines Negative (Negative); Urine Cocaine Negative (Negative); Urine MDMA Negative (Negative); Urine Methadone Negative (Negative); Urine Methamphetamines Positive (Negative); Urine Oxycodone Negative (Negative); Urine Phencyclidine Negative (Negative); Urine Tricyclic Antidepressant Negative (Negative)
[2020-12-14 13:47] LABS: Lactate 2HR (Lactic Acid Rflx) 1.8 mmol/L (0.7-2.1)
[2020-12-14] MEDS: LORazepam 2 MG/ML INJ 1 MG IV ×2 (15:51→18:19)
[2020-12-14] MEDS: HYDROMORPHONE 1 MG INJ IV ×2 (17:01→18:20)
--- NOTE | 2020-12-14 17:56 | PC.NURSE ---
report to [facility] [place] [id number] [phone]
[2020-12-15 02:32] LABS: Acinetobacter baumannii Not Detected (Not Detect); Candida albicans Not Detected (Not Detect); Candida glabrata Not Detected (Not Detect); E. coli Not Detected (Not Detect); Enterobacter cloacae complex Not Detected (Not Detect); Enterobacteriaceae species Not Detected (Not Detect); Enterococcus species Not Detected (Not Detect); Haemophilus influenzae Not Detected (Not Detect); Listeria monocytogenes Not Detected (Not Detect); Methicillin-resistant gene Detected (Not Detect); Neisseria meningitidis Not Detected (Not Detect); Proteus species Not Detected (Not Detect); Pseudomonas aeruginosa Not Detected (Not Detect); Serratia marcescens Not Detected (Not Detect); Staphylococcus species Detected (Not Detect); Streptococcus agalactiae (Gr B Not Detected (Not Detect); Streptococcus pneumonia Not Detected (Not Detect); Streptococcus pyogenes (Gr A) Not Detected (Not Detect); Streptococcus species Not Detected (Not Detect)
[2020-12-15 02:33] LABS: Candida krusei Not Detected (Not Detect); Candida parapsilosis Not Detected (Not Detect); Candida tropicalis Not Detected (Not Detect)
== END 2020-12-14 18:25 | disposition short-term general hospital (02) ==
PROVIDERS: Emergency Provider Emergency Medicine; PCP Physician Assistant
DX: I26.90 Septic pulmonary embolism without acute cor pulmonale (principal); R00.0 Tachycardia, unspecified; R06.82 Tachypnea, not elsewhere classified; Z20.822 Contact with and (suspected) exposure to COVID-19
CPT/HCPCS: 36415; 71045; 71275; 80053; 80305; 81001; 81003; 83605; 83690; 84145; 85025; 85379; 87040; 87086; 87150; 87186; 87205; 87635; 93005; 93306; 96361; 96365; 96367; 96375; 96376; 99285; 99291; C9803; J1170; J1885; J2060; J2543; Q9967